=== PATIENT | female | born 1955 | race Caucasian/White ===

== ENCOUNTER 2020-02-10 19:50 | Inpatient (IN) | payer OTHER ==
[2020-02-10 20:18] VITALS: BMI 20.5
[2020-02-10] MEDS ORDERED: ONDANSETRON 4 MG/2 ML VIAL IVPUSH ONE (20:48)
[2020-02-10] MEDS ORDERED: LACTATED RINGERS SOLUTION 1000 ML INFUS.BAG IV ONE (20:48)
[2020-02-10] MEDS ORDERED: morphine CARPU-JECT 4 MG/1 ML DISP.SYRIN IVPUSH ONE (20:48)
[2020-02-10] MEDS ORDERED: morphine SULFATE 4 MG/ML VIAL ONE (20:56)
[2020-02-10 21:31] LABS: BASO % 0.3 % (0-2.0); HEMATOCRIT 31.7 % (32.4-45.2); HEMOGLOBIN 10.9 GM/dL (10.7-15.3); LYMPH % 7.5 % (8-40); MCH 33.4 pg (25.7-33.7); MCHC 34.3 g/dl (32.0-36.0); MEAN CELL VOLUME 97.4 fl (80-96); MEAN PLT VOLUME 7.7 fl (7.5-11.1); MONO % 7.2 % (3.8-10.2); PLATELET COUNT 265 K/MM3 (134-434); RBC 3.26 M/mm3 (3.60-5.2); RDW 13.5 % (11.6-15.6); WHITE BLOOD COUNT 8.5 K/mm3 (4.0-10.0)
[2020-02-10 22:02] LABS: CHLORIDE 96 mmol/L (98-107); SODIUM 132 mmol/L (136-145)
[2020-02-10 22:04] LABS: CALCIUM 9.1 mg/dL (8.5-10.1)
[2020-02-10 22:05] LABS: ALBUMIN 3.8 g/dl (3.4-5.0); ANION GAP 12 MMOL/L (8-16); BLOOD UREA NITROGEN 11.3 mg/dL (7-18); CO2 25 mmol/L (21-32); GLUCOSE,RANDOM 114 mg/dL (74-106)
[2020-02-10 22:08] LABS: CREATININE 0.5 mg/dL (0.55-1.3); SGPT/ALT 22 U/L (13-61)
[2020-02-10 22:09] LABS: TOT PROT 6.9 g/dl (6.4-8.2)
[2020-02-10 22:10] LABS: ALK PHOS 103 U/L (45-117)
[2020-02-10 22:14] LABS: SGOT/AST 33 U/L (15-37)
[2020-02-11] MEDS ORDERED: MORPHINE SULFATE 2 MG/ML VIAL IVPUSH PRN (02:10)
[2020-02-11] MEDS ORDERED: DIPHTH,PERTUSS(ACELL),TET VAC 0.5 ML VIAL IM ONE (03:30)
[2020-02-11] MEDS: SODIUM CHLORIDE 1,000 ML IV SCH ×2 (05:24→11:27)
[2020-02-11] MEDS ORDERED: MORPHINE SULFATE 2 MG/ML VIAL ONE (06:56)
[2020-02-11 07:01] LABS: INR 0.92 (0.83-1.09); PROTHROMBIN TIME (PATIENT) 11.3 SEC (9.7-13.0)
[2020-02-11 07:09] LABS: BASO % 0.6 % (0-2.0); EOS % 0.1 % (0-4.5); HEMATOCRIT 26.8 % (32.4-45.2); MCH 32.8 pg (25.7-33.7); MCHC 33.6 g/dl (32.0-36.0); MEAN CELL VOLUME 97.6 fl (80-96); MEAN PLT VOLUME 7.6 fl (7.5-11.1); MONO % 9.3 % (3.8-10.2); PLATELET COUNT 223 K/MM3 (134-434); RBC 2.75 M/mm3 (3.60-5.2); RDW 13.8 % (11.6-15.6); WHITE BLOOD COUNT 5.7 K/mm3 (4.0-10.0)
[2020-02-11 07:48] LABS: POTASSIUM 3.9 mmol/L (3.5-5.1)
[2020-02-11 07:59] LABS: PHOSPHOROUS 3.7 mg/dL (2.5-4.9)
[2020-02-11 08:00] LABS: CALCIUM 8.5 mg/dL (8.5-10.1)
[2020-02-11 08:01] LABS: ALBUMIN 3.3 g/dl (3.4-5.0); BILIRUBIN,TOTAL 1.2 mg/dL (0.2-1); BLOOD UREA NITROGEN 11.3 mg/dL (7-18); MAGNESIUM 1.9 mg/dL (1.8-2.4); TOT PROT 5.8 g/dl (6.4-8.2)
[2020-02-11 08:05] LABS: CREATININE 0.5 mg/dL (0.55-1.3)
[2020-02-11] MEDS: DOCUSATE SODIUM 100 MG CAPSULE (FP) PO SCH (11:27)
[2020-02-11] MEDS: oxyCODONE HCL 5 MG TABLET PO PRN ×2 (11:27→18:23)
[2020-02-11] MEDS ORDERED: ALBUTEROL SO4 HFA INHALER IH PRN (12:28)
[2020-02-11 12:51] LABS: BASO % 0.2 % (0-2.0); EOS % 0.1 % (0-4.5); HEMATOCRIT 29.3 % (32.4-45.2); HEMOGLOBIN 9.8 GM/dL (10.7-15.3); LYMPH % 8.9 % (8-40); MCH 33.3 pg (25.7-33.7); MCHC 33.4 g/dl (32.0-36.0); MEAN CELL VOLUME 99.5 fl (80-96); MEAN PLT VOLUME 8.3 fl (7.5-11.1); MONO % 6.2 % (3.8-10.2); NEUT % 84.6 % (42.8-82.8); PLATELET COUNT 219 K/MM3 (134-434); RBC 2.94 M/mm3 (3.60-5.2); RDW 13.9 % (11.6-15.6); WHITE BLOOD COUNT 8.6 K/mm3 (4.0-10.0)
[2020-02-11] MEDS: NICOTINE 14 MG/24 HOURS TOPICAL PATCH TD SCH (15:40)
[2020-02-11] MEDS: BUDESONIDE/FORMETEROL FUMARATE 160/4.5 mcg INHALER IH SCH ×2 (15:40→21:01)
[2020-02-11] MEDS: SENNOSIDES 8.6MG TABLET (FP) PO SCH (21:01)
[2020-02-11 22:01] LABS: URINE APPEARANCE CLEAR; URINE BILIRUBIN NEGATIVE (NEGATIVE); URINE COLOR YELLOW; URINE GLUCOSE (UA) NEGATIVE (NEGATIVE); URINE KETONE 2+ (NEGATIVE); URINE LEUK ESTERASE NEGATIVE (NEGATIVE); URINE NITRITE NEGATIVE (NEGATIVE); URINE PROTEIN NEGATIVE (NEGATIVE); URINE UROBILINOGEN 0.2 mg/dL (0.2-1.0)
[2020-02-12] MEDS: oxyCODONE HCL 5 MG TABLET PO PRN ×3 (00:29→17:43)
[2020-02-12] MEDS: SODIUM CHLORIDE 1,000 ML IV SCH ×2 (06:49→11:41)
[2020-02-12 09:07] LABS: BASO % 0.3 % (0-2.0); HEMATOCRIT 24.9 % (32.4-45.2); HEMOGLOBIN 8.3 GM/dL (10.7-15.3); LYMPH % 4.9 % (8-40); MCH 32.8 pg (25.7-33.7); MCHC 33.4 g/dl (32.0-36.0); MEAN CELL VOLUME 98.2 fl (80-96); MEAN PLT VOLUME 7.7 fl (7.5-11.1); MONO % 4.1 % (3.8-10.2); NEUT % 90.7 % (42.8-82.8); PLATELET COUNT 208 K/MM3 (134-434); RBC 2.53 M/mm3 (3.60-5.2); RDW 13.8 % (11.6-15.6); WHITE BLOOD COUNT 10.6 K/mm3 (4.0-10.0)
[2020-02-12 09:32] LABS: POTASSIUM 3.4 mmol/L (3.5-5.1)
[2020-02-12 09:34] LABS: ALBUMIN 2.6 g/dl (3.4-5.0)
[2020-02-12 09:35] LABS: BLOOD UREA NITROGEN 6.1 mg/dL (7-18); MAGNESIUM 1.6 mg/dL (1.8-2.4)
[2020-02-12 09:38] LABS: CREATININE 0.3 mg/dL (0.55-1.3)
[2020-02-12 09:39] LABS: BILIRUBIN,TOTAL 0.7 mg/dL (0.2-1); TOT PROT 5.3 g/dl (6.4-8.2)
[2020-02-12] MEDS: DOCUSATE SODIUM 100 MG CAPSULE (FP) PO SCH (09:42)
[2020-02-12] MEDS: BUDESONIDE/FORMETEROL FUMARATE 160/4.5 mcg INHALER IH SCH ×2 (09:43→21:56)
[2020-02-12] MEDS: NICOTINE 14 MG/24 HOURS TOPICAL PATCH TD SCH (09:43)
[2020-02-12] MEDS ORDERED: ACETAMINOPHEN 325 MG TABLET (FP) PO PRN (11:30)
[2020-02-12] MEDS ORDERED: oxyCODONE HCL 5 MG TABLET PO PRN (11:30)
[2020-02-12] MEDS: ACETYLCYSTEINE 20% 200MG/ML 4 ML VIAL *FOR ORAL / INH USE ONLY NEB SCH ×4 (11:54→22:35)
[2020-02-12] MEDS ORDERED: POTASSIUM CHLORIDE TABS 20 MEQ TABLET.ER (FP) PO ONE (12:19)
[2020-02-12] MEDS ORDERED: ACETAMINOPHEN 500 MG TABLET (FP) PO ONE (12:23)
[2020-02-12] MEDS: ACETAMINOPHEN 325 MG TABLET (FP) PO SCH ×2 (13:10→21:49)
[2020-02-12] MEDS ORDERED: ACETYLCYSTEINE 20% 200MG/ML 30 ML VIAL *FOR ORAL / INH USE ONLY NEB ONE (21:55)
[2020-02-12] MEDS: SENNOSIDES 8.6MG TABLET (FP) PO SCH (21:56)
[2020-02-12] MEDS ORDERED: ALBUTEROL SO4 0.083% IH SOL 2.5 MG/3 ML VIAL.NEB. NEB ONE (22:01)
[2020-02-13] MEDS: oxyCODONE HCL 5 MG TABLET PO PRN ×4 (00:10→22:46)
[2020-02-13] MEDS: ACETAMINOPHEN 325 MG TABLET (FP) PO SCH ×3 (04:39→20:24)
[2020-02-13] MEDS: SODIUM CHLORIDE 1,000 ML IV SCH (04:51)
[2020-02-13] MEDS: ACETYLCYSTEINE 20% 200MG/ML 4 ML VIAL *FOR ORAL / INH USE ONLY NEB SCH ×5 (07:33→19:30)
[2020-02-13] MEDS ORDERED: ACETYLCYSTEINE 20% 200MG/ML 30 ML VIAL *FOR ORAL / INH USE ONLY NEB SCH (08:56)
[2020-02-13 09:10] LABS: BASO % 0.3 % (0-2.0); EOS % 0.3 % (0-4.5); HEMATOCRIT 23.6 % (32.4-45.2); HEMOGLOBIN 7.8 GM/dL (10.7-15.3); LYMPH % 4.3 % (8-40); MCH 32.5 pg (25.7-33.7); MCHC 32.9 g/dl (32.0-36.0); MEAN CELL VOLUME 98.9 fl (80-96); MEAN PLT VOLUME 8.4 fl (7.5-11.1); MONO % 5.4 % (3.8-10.2); NEUT % 89.7 % (42.8-82.8); PLATELET COUNT 229 K/MM3 (134-434); RBC 2.39 M/mm3 (3.60-5.2); RDW 14.2 % (11.6-15.6); WHITE BLOOD COUNT 13.1 K/mm3 (4.0-10.0)
[2020-02-13] MEDS: NICOTINE 14 MG/24 HOURS TOPICAL PATCH TD SCH (09:34)
[2020-02-13] MEDS: DOCUSATE SODIUM 100 MG CAPSULE (FP) PO SCH (09:35)
[2020-02-13] MEDS: BUDESONIDE/FORMETEROL FUMARATE 160/4.5 mcg INHALER IH SCH ×2 (09:37→22:52)
[2020-02-13 09:48] LABS: POTASSIUM 3.9 mmol/L (3.5-5.1)
[2020-02-13 09:54] LABS: ALBUMIN 2.4 g/dl (3.4-5.0); BLOOD UREA NITROGEN 8.3 mg/dL (7-18)
[2020-02-13 09:55] LABS: MAGNESIUM 1.5 mg/dL (1.8-2.4)
[2020-02-13 09:57] LABS: CREATININE 0.3 mg/dL (0.55-1.3)
[2020-02-13 09:58] LABS: BILIRUBIN,TOTAL 1.1 mg/dL (0.2-1); PHOSPHOROUS 1.7 mg/dL (2.5-4.9)
[2020-02-13 09:59] LABS: TOT PROT 4.6 g/dl (6.4-8.2)
[2020-02-13] MEDS: ALBUTEROL SO4 0.083% IH SOL 2.5 MG/3 ML VIAL.NEB. NEB SCH ×3 (12:45→19:30)
[2020-02-13] MEDS: SENNOSIDES 8.6MG TABLET (FP) PO SCH (22:46)
[2020-02-14] MEDS: ACETAMINOPHEN 325 MG TABLET (FP) PO SCH ×3 (03:56→21:35)
[2020-02-14] MEDS: SODIUM CHLORIDE 1,000 ML IV SCH (05:14)
[2020-02-14] MEDS: oxyCODONE HCL 5 MG TABLET PO PRN ×3 (06:03→17:48)
[2020-02-14] MEDS: ACETYLCYSTEINE 20% 200MG/ML 4 ML VIAL *FOR ORAL / INH USE ONLY NEB SCH ×4 (07:45→20:27)
[2020-02-14] MEDS: ALBUTEROL SO4 0.083% IH SOL 2.5 MG/3 ML VIAL.NEB. NEB SCH ×4 (07:45→20:28)
[2020-02-14] MEDS: NICOTINE 14 MG/24 HOURS TOPICAL PATCH TD SCH (10:39)
[2020-02-14] MEDS: DOCUSATE SODIUM 100 MG CAPSULE (FP) PO SCH (10:40)
[2020-02-14] MEDS: BUDESONIDE/FORMETEROL FUMARATE 160/4.5 mcg INHALER IH SCH ×2 (10:42→22:00)
[2020-02-14] MEDS ORDERED: MAGNESIUM OXIDE 400 MG TABLET (FP) PO ONE (13:00)
[2020-02-14] MEDS: NAPH,MB-DB/K PH,MBDB POWDER PACKET PO SCH ×2 (14:32→21:35)
[2020-02-14] MEDS: SENNOSIDES 8.6MG TABLET (FP) PO SCH (21:35)
[2020-02-15] MEDS: oxyCODONE HCL 5 MG TABLET PO PRN ×3 (02:39→16:44)
[2020-02-15] MEDS: NAPH,MB-DB/K PH,MBDB POWDER PACKET PO SCH ×3 (05:30→21:12)
[2020-02-15] MEDS: ACETAMINOPHEN 325 MG TABLET (FP) PO SCH (05:30)
[2020-02-15] MEDS: ACETYLCYSTEINE 20% 200MG/ML 4 ML VIAL *FOR ORAL / INH USE ONLY NEB SCH ×4 (07:45→20:48)
[2020-02-15] MEDS: ALBUTEROL SO4 0.083% IH SOL 2.5 MG/3 ML VIAL.NEB. NEB SCH ×4 (07:46→20:49)
[2020-02-15 08:13] LABS: BASO % 0.6 % (0-2.0); EOS % 1.5 % (0-4.5); HEMATOCRIT 23.3 % (32.4-45.2); HEMOGLOBIN 7.9 GM/dL (10.7-15.3); LYMPH % 12.7 % (8-40); MCH 33.2 pg (25.7-33.7); MCHC 33.8 g/dl (32.0-36.0); MEAN CELL VOLUME 98.3 fl (80-96); MEAN PLT VOLUME 7.4 fl (7.5-11.1); MONO % 10.7 % (3.8-10.2); NEUT % 74.5 % (42.8-82.8); PLATELET COUNT 322 K/MM3 (134-434); RBC 2.37 M/mm3 (3.60-5.2); RDW 14.4 % (11.6-15.6); WHITE BLOOD COUNT 8.4 K/mm3 (4.0-10.0)
[2020-02-15 08:16] LABS: POTASSIUM 3.6 mmol/L (3.5-5.1)
[2020-02-15 08:18] LABS: BLOOD UREA NITROGEN 7.7 mg/dL (7-18); MAGNESIUM 1.7 mg/dL (1.8-2.4)
[2020-02-15 08:21] LABS: CREATININE 0.3 mg/dL (0.55-1.3); PHOSPHOROUS 2.8 mg/dL (2.5-4.9)
[2020-02-15 08:22] LABS: IRON SERUM 15 ug/dL (50-175); TOTAL IRON BINDING CAPACITY 151 ug/dL (250-450)
[2020-02-15] MEDS: DOCUSATE SODIUM 100 MG CAPSULE (FP) PO SCH (09:23)
[2020-02-15] MEDS: NICOTINE 14 MG/24 HOURS TOPICAL PATCH TD SCH (09:23)
[2020-02-15] MEDS: BUDESONIDE/FORMETEROL FUMARATE 160/4.5 mcg INHALER IH SCH ×2 (09:28→21:12)
[2020-02-15] MEDS ORDERED: IRON SUCROSE INJECTION 200 MG in SODIUM CHLORIDE 90 ML IVPB ONE (11:30)
[2020-02-15] MEDS: SENNOSIDES 8.6MG TABLET (FP) PO SCH (21:12)
[2020-02-16] MEDS: oxyCODONE HCL 5 MG TABLET PO PRN ×3 (04:27→16:02)
[2020-02-16] MEDS: NAPH,MB-DB/K PH,MBDB POWDER PACKET PO SCH ×2 (05:20→13:39)
[2020-02-16] MEDS: ACETYLCYSTEINE 20% 200MG/ML 4 ML VIAL *FOR ORAL / INH USE ONLY NEB SCH (07:37)
[2020-02-16] MEDS: ALBUTEROL SO4 0.083% IH SOL 2.5 MG/3 ML VIAL.NEB. NEB SCH (07:37)
[2020-02-16] MEDS ORDERED: IRON SUCROSE INJECTION 100 MG in SODIUM CHLORIDE 95 ML IVPB ONE (09:00)
[2020-02-16] MEDS: NICOTINE 14 MG/24 HOURS TOPICAL PATCH TD SCH (10:08)
[2020-02-16] MEDS: DOCUSATE SODIUM 100 MG CAPSULE (FP) PO SCH (10:09)
[2020-02-16] MEDS: BUDESONIDE/FORMETEROL FUMARATE 160/4.5 mcg INHALER IH SCH (10:10)
[2020-02-16 11:09] LABS: HEMATOCRIT 24.6 % (32.4-45.2); HEMOGLOBIN 8.4 GM/dL (10.7-15.3); MCH 33.7 pg (25.7-33.7); MEAN CELL VOLUME 99.2 fl (80-96); MEAN PLT VOLUME 7.4 fl (7.5-11.1); PLATELET COUNT 414 K/MM3 (134-434); RBC 2.48 M/mm3 (3.60-5.2); RDW 14.4 % (11.6-15.6); WHITE BLOOD COUNT 7.3 K/mm3 (4.0-10.0)
[2020-02-16] MEDS ORDERED: ALBUTEROL SO4 0.083% IH SOL 2.5 MG/3 ML VIAL.NEB. NEB PRN (11:21)
[2020-02-16 11:34] LABS: POTASSIUM 3.5 mmol/L (3.5-5.1)
[2020-02-16 11:37] LABS: ALBUMIN 2.5 g/dl (3.4-5.0); BLOOD UREA NITROGEN 7.1 mg/dL (7-18); CALCIUM 8.2 mg/dL (8.5-10.1); MAGNESIUM 1.7 mg/dL (1.8-2.4)
[2020-02-16 11:40] LABS: CREATININE 0.5 mg/dL (0.55-1.3)
[2020-02-16 11:42] LABS: BILIRUBIN,TOTAL 0.7 mg/dL (0.2-1); TOT PROT 5.3 g/dl (6.4-8.2)
[2020-02-16] MEDS ORDERED: ALBUTEROL SO4 HFA INHALER IH PRN (12:19)
[2020-02-16] MEDS ORDERED: ACETAMINOPHEN 500 MG TABLET (FP) PO SCH (12:30)
[2020-02-16 13:14] VITALS: BP 106/54; PULSE 101; TEMP 97.9
== END 2020-02-16 20:25 | DRG 342 ==
LOC: JER 19:50 → JERBED 02-11 01:11 → J6WEST-2 02-11 10:57 → J6S 02-12 18:14
PROVIDERS: ADMIT Internal Medicine; ATTEND Internal Medicine
DX: S42.212A Unspecified displaced fracture of surgical neck of left humerus, initial encounter for closed fracture (principal); F17.210 Nicotine dependence, cigarettes, uncomplicated; J96.01 Acute respiratory failure with hypoxia; D62 Acute posthemorrhagic anemia; D50.9 Iron deficiency anemia, unspecified; S32.592A Other specified fracture of left pubis, initial encounter for closed fracture; J43.9 Emphysema, unspecified; W19.XXXA Unspecified fall, initial encounter; Y93.9 Activity, unspecified; Y92.89 Other specified places as the place of occurrence of the external cause; Y99.9 Unspecified external cause status
CPT/HCPCS: 36415; 70450-TC; 71045-TC-FY; 71275-TC; 73030-TC-LT-FY; 73060-TC-LT-FY; 73523-TC-FY; 80048; 80053; 81003; 82103; 82550; 82553; 83540; 83550; 83735; 84100; 84484; 85025; 85027; 85379; 85610; 85730; 93005; 93010; 94640; 97116-GP; 97161-GP; 99285-25; C9803; J1756; U0003